=== PATIENT | male | born 1935 | race Two or more races ===

== ENCOUNTER 2023-03-01 17:51 | Inpatient (IN) | payer OTHER ==
[~2023-03-01] VITALS: Ht 167.6 cm; Wt 72.6 kg
== END 2023-03-04 14:36 | DRG 481 ==
LOC: ER 17:51 → SURG 19:57
PROVIDERS: ADMIT Orthopaedic Surgery; ATTEND Orthopaedic Surgery
PROC: 0QS606Z Reposition Right Upper Femur with Intramedullary Internal Fixation Device, Open Approach (ICD-10-PCS; principal; 2023-03-02 09:15)
DX: M80.851A Other osteoporosis with current pathological fracture, right femur, initial encounter for fracture (principal); D62 Acute posthemorrhagic anemia; M16.11 Unilateral primary osteoarthritis, right hip; I10 Essential (primary) hypertension